=== PATIENT | female | born 1965 | race Caucasian/White ===

== ENCOUNTER 2018-02-26 17:23 | Inpatient (IN) | payer MEDICAID ==
[~2018-02-26] VITALS: Ht 167.6 cm; Wt 80.3 kg
--- NOTE | 2018-02-26 17:25 | NUR ---
RT NOTE: PT. 52 Y OLD FEMALE REC. IN ER TRACHED SHILEY ALERT AND RESPONSIVE, BILATERALLY RALES NOTED AND SUX'D FOR MOD. AMT SECRETIONS. EQUAL CHEST RISE NOTED. PLACED ON COOL AEROSOL 40 % 10 L/MIN VIA T-PIECE CONTINUE FOR MONITOR, SPO2 98% HR 88.
--- NOTE | 2018-02-26 17:35 | NUR ---
YUMI FROM [facility] D/T WANTS PT TO BE "CHECKED OUT", NOTED DIAPHORETIC. A/OX 1, BREATHING EVEN AND UNLABORED VIA TRACH ON COOL AEROSOL. PATIENT IS BEDBOUND, NONVERBAL AT BASELINE. NAD, VITALS STABLE. SAFETY AND COMFORT MEASURES IN PLACE. AWAITING MD ORDERS.
--- NOTE | 2018-02-26 17:45 | NUR ---
NEW IV STARTED ON LFA, 20G. UNABLE TO DRAW BLOOD, LAB INFORMED TO DRAW BLOOD.
--- NOTE | 2018-02-26 17:58 | NUR ---
URINE OBTAINED VIA STRAIGHT CATH AND SENT TO LAB PER MD ORDERS.
[2018-02-26] MEDS ORDERED: IV NS 0.9% 1,000 ML BAG IV ONE (18:00)
--- NOTE | 2018-02-26 18:00 | NUR ---
AT BEDSIDE AT THIS TIME, STATING PATIENT IS MORE ALTERED THAN USUAL TO SCHOOL COORDINATOR, JUAN BEAULIEU. PER JUAN, ACTIVATE CODE STROKE.
--- NOTE | 2018-02-26 18:01 | NUR ---
CODE STROKE CALLED.
--- NOTE | 2018-02-26 18:05 | NUR ---
PT WENT TO CT.
[2018-02-26 18:06] LABS: APPEARANCE,URINE Clear (CLEAR); BILIRUBIN,URINE Negative (NEGATIVE); BLOOD, URINE Negative Ery/uL (NEGATIVE); COLOR,URINE Yellow (YELLOW); KETONES,URINE Negative (NEGATIVE); LEUKOCYTE ESTERASE ,URINE Trace (NEGATIVE); NITRITE, URINE Positive (NEGATIVE); PH,URINE 7.5 (5.0-8.0); PROTEIN,URINE Trace mg/dl (NEGATIVE); UGLUCOSE Negative (NEGATIVE); UROBILINOGEN,URINE 0.2 EU/dL (0.2)
[2018-02-26 18:09] LABS: BASOPHILS # (AUTO) 0.2 /CMM (0.0-0.2); BASOPHILS % (AUTO) 1.8 % (0.0-2.0); EOSINOPHILS % (AUTO) 7.7 % (0.0-6.0); HEMATOCRIT 40 % (33-45); HEMOGLOBIN 13.6 g/dL (11.5-14.8); LYMPHOCYTES # (AUTO) 1.8 /CMM (0.8-4.8); LYMPHOCYTES % (AUTO) 20.4 % (20.0-44.0); MEAN CORPUSCULAR HGB CONC 34 g/dl (31.0-36.0); MEAN CORPUSCULAR VOLUME 86 fL (82-100); MONOCYTES # (AUTO) 0.3 /CMM (0.1-1.30); MONOCYTES % (AUTO) 3.9 % (2.0-12.0); NEUTROPHILS # (AUTO) 5.6 /CMM (1.8-8.9); NEUTROPHILS % (AUTO) 66.2 % (43.0-81.0); PLATELET COUNT (AUTO) 442 /CMM (150-450); RDW COEFFICIENT OF VARIATION 15.1 (11.5-15.0); RED BLOOD CELL COUNT(AUTO) 4.67 MIL/uL (4.0-5.2); WHITE BLOOD COUNT (AUTO) 8.6 K/uL (4.3-11.0)
[2018-02-26] MEDS ORDERED: IV NS 0.9% 500 ML IV ONE (18:10)
[2018-02-26] MEDS ORDERED: IOHEXOL-350 100 ML VIAL IV ONE (18:10)
--- NOTE | 2018-02-26 18:15 | NUR ---
NEW IV STARTED ON LAC, 20G. IV ON LFA, INFILTRATED IN CT.
[2018-02-26 18:28] LABS: INR 0.95 (0.85-1.15)
[2018-02-26] MEDS ORDERED: PIPERACILLIN /TAZOBACTAM 3.375 G in IV D5W 50 ML IV ONE (18:30)
--- NOTE | 2018-02-26 18:30 | NUR ---
PT BACK FROM CT
[2018-02-26 18:32] LABS: ALANINE AMINOTRANSFERASE 42 U/L (12-78); ALBUMIN 2.9 g/dL (3.4-5.0); ALKALINE PHOSPHATASE 82 U/L (46-116); ASPARTATE AMINOTRANSFERASE 23 U/L (15-37); BILIRUBIN,DIRECT 0.1 mg/dL (0.0-0.2); BILIRUBIN,TOTAL 0.2 mg/dL (0.2-1.0); CALCIUM, SERUM 9.3 mg/dL (8.5-10.1); CARBON DIOXIDE 29 mmol/L (21-32); CHLORIDE 100 mmol/L (98-107); CREATININE 0.5 mg/dL (0.6-1.3); GLUCOSE 99 mg/dL (74-106); SODIUM SERUM 137 mmol/L (136-145); TOTAL PROTEIN, SERUM 7.6 g/dL (6.4-8.2); UREA NITROGEN, BLOOD 17 mg/dL (7-18)
[2018-02-26 18:51] LABS: BACTERIA,URINE Many /HPF (None Seen); RBC,URINE 0-2 /HPF (0-2); SQUAMOUS EPITHELIAL CELL,UR Few /HPF (None Seen)
[2018-02-26] MEDS ORDERED: hydrALAZINE HCL IV 20 MG VIAL ONE (18:59)
[2018-02-26] MEDS ORDERED: IPRATROPIUM NEB FS 0.5 MG/2.5 ML AMPUL.NEB NEB ONE (19:00)
[2018-02-26] MEDS ORDERED: hydrALAZINE HCL IV 20 MG VIAL IV ONE (19:00)
[2018-02-26] MEDS ORDERED: ALBUTEROL FS 2.5 MG/0.5 ML VIAL.NEB NEB ONE (19:00)
[2018-02-26] MEDS ORDERED: LEVOFLOXACIN 750 MG /D5W 150ML PIGGYBACK IV ONE (19:00)
[2018-02-26] MEDS ORDERED: IPRATROPIUM NEB FS 0.5 MG/2.5 ML AMPUL.NEB ONE (19:03)
[2018-02-26] MEDS ORDERED: ALBUTEROL FS 2.5 MG/0.5 ML VIAL.NEB ONE (19:03)
--- NOTE | 2018-02-26 19:03 | NUR ---
PATIENT'S BP ELEVATED, TECHNICAL TRAINING COORDINATOR, SCOTTIEI INFORMED. ORDERED HYDRALAZINE, PATIENT MEDICATED PER MD ORDERS.
--- NOTE | 2018-02-26 19:05 | NUR ---
CALLED NURSING SQUADRON WORKER AND REQUESTED A TELE BED FOR THIS PT.
[2018-02-26] MEDS ORDERED: BLOO-668 IN (19:10)
--- NOTE | 2018-02-26 19:15 | NUR ---
REPORT GIVEN TO ZAHIDA FOR SAHARA.
[2018-02-26 19:19] LABS: CHOLESTEROL 168 mg/dL (<200); HDL CHOLESTEROL 53 mg/dL (40-60); LDL 108 mg/dL (0-99); TRIGLYCERIDES 313 mg/dL (30-150)
[2018-02-26] MEDS ORDERED: ACET-868 GT (19:20)
[2018-02-26] MEDS ORDERED: MAGN400O6 GT (19:20)
[2018-02-26] MEDS ORDERED: DOCU100C36 GT (19:20)
[2018-02-26] MEDS ORDERED: AMLO5TAB7 GT (19:20)
[2018-02-26] MEDS ORDERED: LACT-96 GT (19:20)
[2018-02-26] MEDS ORDERED: FERR300L GT (19:20)
[2018-02-26] MEDS ORDERED: METO50TA16 GT (19:20)
--- NOTE | 2018-02-26 19:30 | NUR ---
PT'S RT HAND IV IS INFILTRATED. IV REMOVED. PT STILL HAS IV ON LAC.
[2018-02-26 19:34] LABS: TROPONIN I < 0.002 ng/mL (0.00-0.056)
[2018-02-26] MEDS ORDERED: LEVOFLOXACIN 750 MG /D5W 150ML 150 ML IV ONE (20:00)
--- NOTE | 2018-02-26 20:07 | NUR ---
FREEDOM SPLINT APPLIED. IS AWARE. STEVEN CABALLERO IS STARTING LEVAQUIN AT THIS TIME.
[2018-02-26] MEDS ORDERED: HYDROCODONE/APAP 5/325MG 1 EACH TABLET PO PRN (20:30)
[2018-02-26] MEDS ORDERED: MAG HYDROX/AL HYDROX/SIMETH 30 ML UDC PO PRN (20:30)
[2018-02-26] MEDS ORDERED: Z GUARD REMEDY 2 OZ OINT TP PRN (20:30)
[2018-02-26] MEDS ORDERED: MAGNESIUM HYDROXIDE 30 ML UDC PO PRN (20:30)
[2018-02-26] MEDS ORDERED: ACETAMINOPHEN 325 MG TABLET PO PRN ×2 (20:30)
[2018-02-26] MEDS ORDERED: hydrALAZINE HCL 25 MG TABLET PO PRN (20:30)
[2018-02-26] MEDS ORDERED: ZOLPIDEM TARTRATE 5 MG TABLET PO PRN (20:30)
[2018-02-26] MEDS ORDERED: ONDANSETRON HCL/PF 4 MG/2 ML VIAL IVP PRN (20:30)
[2018-02-26] MEDS ORDERED: ENALAPRILAT INJ (1.25 MG/ML) 1.25 MG/ML VIAL IV PRN (20:30)
--- NOTE | 2018-02-26 20:40 | NUR ---
PT IS ASSIGNED TO [facility] #[id number]:, PT IS DIAGNOSED WITH TIA, PNEUMONIA, AND UTI, AND DR HANSEN IS THE ACCEPTING MD
--- NOTE | 2018-02-26 20:50 | NUR ---
MANGLE CATCHERELECTRIC REPAIR SUPERVISOR NOTES ADMITTED 52 YO FEMALE PT ALERT, AWAKE, NONVERBAL WITH TRACHEOSTOMY PATENT, ON COOL AEROSOL FIO2 35%, O2 SAT 98%. RESPIRATIONS EVEN, UNLABORED, NO APPARENT DISTRESS NOTED. SR 80.GT IN PLACE 1ML RESIDUAL NOTED. NO S/SX OF PAIN OR DISCOMFORT NOTED AT THIS TIME. IV SITE LAC INTACT, PATENT.BODY ASSESSMENT DONE SKIN INTACT. FAMILY AT BEDSIDE. ATTENDED ALL NEEDS. WILL CONTINUE TO MONITOR ACCORDINGLY.
[2018-02-26 21:00] VITALS: BP 132/85
[2018-02-26] MEDS ORDERED: VANCOMYCIN 1 GM in IV D5W 250 ML IV SCH (21:00)
[2018-02-26] MEDS ORDERED: DEXTROSE 50%-WATER 50 ML DISP.SYRIN IV PRN (21:30)
[2018-02-26] MEDS ORDERED: BLOOD SUGAR DIAGNOSTIC 1 EACH STRIP IN SCH (22:00)
[2018-02-26] MEDS ORDERED: VANCOMYCIN 1.25 GM in IV NS 0.9% 250 ML IV ONE (22:00)
--- NOTE | 2018-02-26 22:00 | NUR ---
SURVEILLANCE INSPECTOR NOTE INSERTED F/C ORDERED. PT TOLERATED PROCEDURE WELL , NO S/SX OF PAIN OR DISCOMFORT NOTED..F/C DRAINING YELLOW COLOR URINE. WILL CONTINUE TO MONITOR ACCORDINGLY.
--- NOTE | 2018-02-26 22:13 | NUR ---
PRELIMINARY CAROTID DUPLEX IMAGING SHOWED SEVERE CLOT IN LEFT BULB AREA. ADVISED ATTENDING NURSE (JOSELYN) OF INITIAL RESULTS.
--- NOTE | 2018-02-26 22:26 | NUR ---
PT PLACED ON COOL AEROSOL AT THIS TIME. FI02 AT 35% @ 8L. SP02 IS 100% HR 82. SUCTIONED SMALL AMOUNT OF THIN YELLOW RED TINGED SECRETIONS. WILL CONT TO MONITOR PT.
[2018-02-26] MEDS: IV NS 0.9% 1,000 ML IV PRN (22:38)
[2018-02-26] MEDS: ATORVASTATIN 40 MG TABLET PO SCH (22:47)
[2018-02-26] MEDS: BLOOD SUGAR DIAGNOSTIC 1 EACH STRIP IN SCH (23:14)
[2018-02-27] VITALS: BP_SYST 150; BP_SYST 158; BP_DIAS 78; BP_DIAS 92
[2018-02-27] MEDS ORDERED: BLOOD SUGAR DIAGNOSTIC 1 EACH STRIP IN SCH
--- NOTE | 2018-02-27 | NUR ---
BLOOD GLUCOSE CHECKED 124, NO COVERAGE NEEDED AT THIS TIME. WILL CONTINUE TO MONITOR.
[2018-02-27] MEDS: FIBERSOURCE HN 1,000 ML BOTTLE GT PRN (01:38)
[2018-02-27 04:00] VITALS: BP_SYST 144; BP_DIAS 80; BP_DIAS 90
[2018-02-27] MEDS: BLOOD SUGAR DIAGNOSTIC 1 EACH STRIP IN SCH ×4 (05:12→23:18)
[2018-02-27] MEDS: PIPERACILLIN /TAZOBACTAM 3.375 G in IV D5W 100 ML IV SCH ×6 (05:12→23:18)
[2018-02-27] MEDS: INSULIN REGULAR, HUMAN 100 UNIT/ML 3 ML VIAL SQ PRN ×4 (05:38→23:32)
--- NOTE | 2018-02-27 06:46 | NUR ---
OPEN HEARTH WORKER CLOSING NOTES PT IN BED RESTING COMFORTABLY, TRACH PATENT, NO RESPIRATORY DISTRESS NOTED. GT IN PLACE 1ML RESIDUAL NOTED, TOLERATES GT FEEDING WELL. NO S/SX OF PAIN OR DISCOMFORT NOTED. SR 84. IV SITE LAC INTACT, PATENT. F/C IN PLACE DRAINING YELLOW COLOR URINE. TRACH CARE DONE. KEPT CLEAN AND COMFORTABLE, ATTENDED ALL NEEDS. WILL CONTINUE TO MONITOR ACCORDINGLY
[2018-02-27 07:08] LABS: BASOPHILS % (AUTO) 0.2 % (0.0-2.0); EOSINOPHILS % (AUTO) 6.2 % (0.0-6.0); HEMATOCRIT 39 % (33-45); HEMOGLOBIN 12.9 g/dL (11.5-14.8); LYMPHOCYTES # (AUTO) 0.7 /CMM (0.8-4.8); LYMPHOCYTES % (AUTO) 7.3 % (20.0-44.0); MEAN CORPUSCULAR HGB CONC 33 g/dl (31.0-36.0); MEAN CORPUSCULAR VOLUME 87 fL (82-100); MONOCYTES # (AUTO) 0.2 /CMM (0.1-1.30); MONOCYTES % (AUTO) 1.7 % (2.0-12.0); NEUTROPHILS # (AUTO) 8.7 /CMM (1.8-8.9); NEUTROPHILS % (AUTO) 84.6 % (43.0-81.0); PLATELET COUNT (AUTO) 389 /CMM (150-450); RED BLOOD CELL COUNT(AUTO) 4.46 MIL/uL (4.0-5.2); WHITE BLOOD COUNT (AUTO) 10.3 K/uL (4.3-11.0)
[2018-02-27 07:12] LABS: INR 1.01 (0.87-1.13)
[2018-02-27 07:19] LABS: CALCIUM, SERUM 8.8 mg/dL (8.5-10.1); CREATININE 0.6 mg/dL (0.6-1.3); MAGNESIUM 1.8 mg/dL (1.8-2.4); POTASSIUM 3.9 mmol/L (3.5-5.1)
[2018-02-27 07:20] LABS: THYROID STIMULATING HORMONE 2.273 uIU/mL (0.358-3.74)
[2018-02-27 08:00] VITALS: BP 140/63
[2018-02-27] MEDS ORDERED: FEE PK DOSING 1 MIN EA MC ONE (08:20)
[2018-02-27] MEDS: ASPIRIN 81 MG TAB.CHEW PO SCH (08:38)
[2018-02-27] MEDS: METOPROLOL TARTRATE 50 MG TABLET GT SCH ×2 (08:42→16:58)
--- NOTE | 2018-02-27 08:44 | NUR ---
MS RN NOTES AWAKE, A/O X2, ABLE TO MOUTH WORDS. DENIES PAIN, TRACH INTACT, ON COOL AEROSOL, OXYGEN AT 8L FiO2 35%. PRESENCE OF GT, GASTRIC RESIDUAL 5ML, FEEDING FIBERSOURCE AT 55ML/HR. WILL CLARIFY ORDERS FOR CLEAR LIQUIDS DIET. SCD IN PLACE, ASPIRATION, SAFETY PRECAUTION MAINTAINED, WILL CONT TO MONITOR.
[2018-02-27] MEDS: FERROUS SULFATE UDC 300 MG/5 ML UDC GT SCH (08:47)
[2018-02-27] MEDS ORDERED: AMLODIPINE BESYLATE 5 MG TABLET GT SCH (09:00)
--- NOTE | 2018-02-27 11:19 | NUR ---
Social service consult requested by Dr. barnes for CVA. Pt. is a 52 year old female who was admitted to [facility] for altered mental status. Pt. is awake and alert, non-verbal with tracheostomy on cool aerosol. Pt. resides at [facility] located at [phone]. Pt. to be discharged back to [facility] once medically cleared. Pt. is dependent for her ADL's. Pt' s emergency contact /DPOA is her Gavino Burden . No other social service needs are requested at this time. SW is available, if needed.
[2018-02-27] MEDS: VANCOMYCIN 1 GM in IV D5W 250 ML IV SCH ×2 (11:29→21:09)
[2018-02-27 15:46] VITALS: BP 120/86
[2018-02-27] MEDS: METOPROLOL TARTRATE 25 MG TABLET GT SCH (17:44)
--- NOTE | 2018-02-27 18:32 | NUR ---
MS RN CLOSING NOTES A/O X2, ABLE TO MOUTH WORDS. TRACH INTACT, ON COOL AEROSOL OXYGEN 35% 8L, TOLERATING WELL, NO SOB. SUCTION TRACH PRN, TOLERATING GTUBE FEEDING, MAINTAIN HOB ELEVATED. POPE CATH IN PLACE, TUBING BELOW BLADDER, BAG OFF THE FLOOR. BLOOD SUGAR MONITORED WITH ISS PARAMETERS GIVEN. TURNED AND REPOSITION IN BED Q 2HR. SAFETY PRECAUTION MAINTAINED. WILL ENDORSE TO ONCOMING RN.
--- NOTE | 2018-02-27 19:00 | NUR ---
RN OPENING NOTES PT AWAKE AND RESTING IN BED. PT ALERT AND ORIENTED X1. SON AT BEDSIDE. NO APPARENT S/S OF PAIN, DISTRESS OR SOB AT THIS TIME. PT HAS A TRACH TO COOL AEROSOL 8L, FIO2 35%. PT HAS A LEFT AC IV #20 RUNNING NS AT 75ML/HR. PT ALSO HAS FIBERSOURCE AT 55ML FOR 20HRS. SAFETY PRECAUTIONS IN PLACE, BED IN LOW, LOCKED POSITION, X2 SIDE RAILS UP, CALL LIGHT WITHIN REACH. WILL CONTINUE TO MONITOR.
[2018-02-27 20:00] VITALS: BP 132/74
[2018-02-27] MEDS: ATORVASTATIN 40 MG TABLET PO SCH (21:08)
[2018-02-27] MEDS: IV NS 0.9% 1,000 ML IV PRN (23:19)
[2018-02-28] MEDS: FIBERSOURCE HN 1,000 ML BOTTLE GT PRN (02:13)
[2018-02-28] MEDS: PIPERACILLIN /TAZOBACTAM 3.375 G in IV D5W 100 ML IV SCH ×4 (05:25→23:21)
[2018-02-28] MEDS: BLOOD SUGAR DIAGNOSTIC 1 EACH STRIP IN SCH ×4 (05:25→23:21)
[2018-02-28] MEDS: INSULIN REGULAR, HUMAN 100 UNIT/ML 3 ML VIAL SQ PRN ×2 (05:47→23:33)
--- NOTE | 2018-02-28 06:30 | NUR ---
RN CLOSING NOTES PT RESTING IN BED. DAUGHTER AT BEDSIDE. NO APPARENT S/S OF PAIN, DISTRESS OR SOB OVERNIGHT. PT HAS A TRACH TO COOL AEROSOL 8L, FIO2 35%. PT HAS A LEFT AC IV #20 RUNNING NS AT 75ML/HR. PT ALSO HAS FIBERSOURCE AT 55ML FOR 20HRS. SAFETY PRECAUTIONS IN PLACE, BED IN LOW, LOCKED POSITION, X2 SIDE RAILS UP, CALL LIGHT WITHIN REACH. WILL ENDORSE TO DAY SHIFT NURSE FOR CONTINUITY OF CARE.
[2018-02-28 06:53] LABS: CALCIUM, SERUM 8.6 mg/dL (8.5-10.1); CREATININE 0.6 mg/dL (0.6-1.3); POTASSIUM 4.3 mmol/L (3.5-5.1)
--- NOTE | 2018-02-28 07:30 | NUR ---
RN MS NOTES PT IN BED, AWAKE, ALERT TO SELF, NO COMPLAINT OF PAIN, RESPIRATIONS NORMAL, ON TRACH WITH COOL AEROSOL, IV FLUIDS INFUSING WELL, KEPT WARM AND COMFORTABLE, GT FEEDING INFUSING WELL, TURNED AND REPOSITIONED FOR COMFORT.
[2018-02-28 07:57] VITALS: BP 127/69
[2018-02-28] MEDS: FERROUS SULFATE UDC 300 MG/5 ML UDC GT SCH (08:20)
[2018-02-28] MEDS: METOPROLOL TARTRATE 25 MG TABLET GT SCH ×2 (08:21→17:37)
[2018-02-28] MEDS: ASPIRIN 81 MG TAB.CHEW PO SCH (08:21)
[2018-02-28] MEDS: VANCOMYCIN 1 GM in IV D5W 250 ML IV SCH ×2 (10:37→21:18)
--- NOTE | 2018-02-28 11:23 | NUR ---
WOUND CARE CONSULT: PT PRESENTS WITH SLIGHT FINE RASH TO RT ANTERIOR THIGH, PRESENT ON ADMISSION PER NURSING DOCUMENTATION. DEFER TO MD FOR RASH. PT IS VENT-DEPENDENT AND INCONTINENT OF STOOL. POPE PRESENT. ALL SKIN PROTECTION MEASURES IN PLACE AND DISCUSSED WITH NURSING STAFF. CURRENT GGAE SCORE IS 14. WILL SEE PRN. MD IN AGREEMENT WITH PLAN OF CARE.
--- NOTE | 2018-02-28 11:59 | NUR ---
RN MS NOTES PT IN BED, AWAKE, DENIES PAIN, NO SOB, TRACH CARE PROVIDED, IV FLUIDS INFUSING WELL, BS CHECKED, NO S/S OF HYPO/HYPERGLYCEMIA NOTED, TURNED AND REPOSITIONED, F/C DRAINING WELL, KEPT WARM AND COMFORTABLE.
[2018-02-28] MEDS ORDERED: CEPH-570 PO (12:22)
[2018-02-28 16:00] VITALS: BP 160/85
[2018-02-28] MEDS: LACTOBACILLUS RHAMNOSUS GG 1 EACH CAP.SPRINK GT SCH (17:36)
--- NOTE | 2018-02-28 18:57 | NUR ---
RN MS NOTES PT IN BED, AWAKE, NOT IN DISTRESS, DENIES PAIN, FAMILY AT BEDSIDE, GT FEEDING INFUSING WELL, F/C DRAINING WELL WITH CLEAR, YELLOW URINE, PT SCHEDULED FOR D/C BACK TO [facility] BUT WAS HELD, FACILITY UNABLE TO ACCEPT PT BACK TODAY BECAUSE THEY ARE STILL AWAITING FOR CULTURE RESULTS, DR. URENA AND FAMILY INFORMED, PM MEDS GIVEN ORDERED, TURNED AND REPOSITIONED Q2 HOURS, KEPT PT CLEAN AND DRY, ALL NEEDS ATTENDED.
--- NOTE | 2018-02-28 19:15 | NUR ---
RN OPENING NOTES PT AWAKE AND WORKING WITH PHYSICAL THERAPY. NO COMPLAINTS OF PAIN, SOB, OR DISTRESS AT THIS TIME. PT HAS A LEFT AC #20 IV INTACT AND RUNNING 75ML/HR PT HAS A OPPE CATHETER INTACT AND DRAINING WELL. TRACH WITH COOL AEROSOL 5L O2 28% FIO2. SAFETY PRECAUTIONS IN PLACE, BED IN LOW, LOCKED POSITION, X2 SIDE RAILS UP, AND CALL LIGHT WITHIN REACH. WILL CONTINUE TO MONITOR.
[2018-02-28 20:00] VITALS: BP 147/90
[2018-02-28] MEDS: ATORVASTATIN 40 MG TABLET PO SCH (21:18)
[2018-03-01] MEDS: FIBERSOURCE HN 1,000 ML BOTTLE GT PRN (02:51)
[2018-03-01] MEDS: PIPERACILLIN /TAZOBACTAM 3.375 G in IV D5W 100 ML IV SCH ×2 (05:13→12:17)
[2018-03-01] MEDS: BLOOD SUGAR DIAGNOSTIC 1 EACH STRIP IN SCH ×2 (05:14→12:18)
--- NOTE | 2018-03-01 06:19 | NUR ---
RN NOTES PT BLOOD SUGAR 137. PT REFUSED INSULIN.
[2018-03-01 06:41] LABS: CALCIUM, SERUM 8.3 mg/dL (8.5-10.1); CREATININE 0.6 mg/dL (0.6-1.3); POTASSIUM 3.7 mmol/L (3.5-5.1)
--- NOTE | 2018-03-01 06:45 | NUR ---
RN CLOSING NOTES PT AWAKE AND RESTING IN BED. NO COMPLAINTS OF PAIN, SOB, OR DISTRESS OVERNIGHT. PT HAS A LEFT AC #20 IV INTACT AND RUNNING 75ML/HR PT HAS A POPE CATHETER INTACT OUTPUT OF 1200 OVERNIGHT. TRACH WITH COOL AEROSOL 5L O2 28% FIO2. PT HAS G TUBE FEEDING AT 55ML/HR X20 HOURS. SAFETY PRECAUTIONS IN PLACE, BED IN LOW, LOCKED POSITION, X2 SIDE RAILS UP, AND CALL LIGHT WITHIN REACH. WILL ENDORSE TO DAY SHIFT NURSE FOR CONTINUITY OF CARE.
--- NOTE | 2018-03-01 07:50 | NUR ---
RN OPENING NOTES RECEIVED PT. PT IS STABLE AND RESTING IN BED. A/OX3, PT IS TRACHED, CURRENTLY ON COOL AEROSOL WITH 5L O2. NO S/S OF RESP DISTRESS OR SOB. PT DENIES PAIN. IV ACCESS LOCATED ON LEFT AC 20G, INFUSING NS AT 75 ML/HR. AWAITING BLOOD CX IN ORDER TO DC TO [facility]. SAFETY MEASURES IN PLACE, CALL LIGHT WITHIN REACH. WILL CONTINUE TO MONITOR.
[2018-03-01 08:33] VITALS: BP 144/83
[2018-03-01] MEDS: ASPIRIN 81 MG TAB.CHEW PO SCH (08:38)
[2018-03-01] MEDS: FERROUS SULFATE UDC 300 MG/5 ML UDC GT SCH (08:38)
[2018-03-01] MEDS: METOPROLOL TARTRATE 25 MG TABLET GT SCH ×2 (08:39→16:35)
[2018-03-01] MEDS: LACTOBACILLUS RHAMNOSUS GG 1 EACH CAP.SPRINK GT SCH ×2 (08:39→16:34)
[2018-03-01] MEDS: VANCOMYCIN 1 GM in IV D5W 250 ML IV SCH (09:17)
[2018-03-01 16:11] VITALS: BP 149/77
[2018-03-01 16:35] VITALS: BP 149/77
--- NOTE | 2018-03-01 19:10 | NUR ---
DISCHARGE NOTE PT D/C TO [facility]. VSS, NO S/S OF SOB, NO C/O PAIN. DISCHARGE TEACHING PERFORMED, PT SIGNALS UNDERSTANDING BY NODDING HEAD. PT UNABEL TO SIGN DC PAPERWORK, COSIGNER SIGNED. IV ACCESS, POPE AND ID BAND REMOVED. REPORT CALLED AND GIVEN TO REINA THURMAN [facility]. BELONGINGS SHEET COSIGNED BY ADDITIONAL NURSE. PT REFUSES PICTURE OF HIP WOUND. PT LEFT HOSPITAL WITH MEDICAL TRANSPORT IN AMBULANCE.
== END 2018-03-01 18:19 | DRG 463 ==
LOC: ER 17:25 → TELE 20:42 → MED 02-27 08:55
PROVIDERS: ADMIT Internal Medicine; ATTEND Internal Medicine
DX: N39.0 Urinary tract infection, site not specified (principal); G92 Toxic encephalopathy; J96.10 Chronic respiratory failure, unspecified whether with hypoxia or hypercapnia; Z93.0 Tracheostomy status; R53.2 Functional quadriplegia; E11.9 Type 2 diabetes mellitus without complications; I10 Essential (primary) hypertension; B96.1 Klebsiella pneumoniae [K. pneumoniae] as the cause of diseases classified elsewhere; R13.10 Dysphagia, unspecified; Z93.1 Gastrostomy status; E78.5 Hyperlipidemia, unspecified; J98.11 Atelectasis; K21.9 Gastro-esophageal reflux disease without esophagitis; Z86.73 Personal history of transient ischemic attack (TIA), and cerebral infarction without residual deficits; R53.1 Weakness
CPT/HCPCS: 31720; 36415; 70450-TC; 70496-TC; 70498-TC; 71045-TC; 80048-TC; 80061-TC; 80076-TC; 80202-TC; 81000-TC; 82746; 82962-TC; 83540-TC; 83605-TC; 83735-TC; 84100-TC; 84443-TC; 84484-TC; 85025-TC; 85730-TC; 87040-TC; 87081-TC; 87086-TC; 87186-TC; 92611-TC; 93307-TC; 93880-TC; 94640-TC; 94664-TC; 94760-TC; 97110-TC; 97112-TC; 97530-TC; A4606; A4623; J0360; J1815; J1956; J2543; J3370; J7030; J7040; J7050; J7060; Q9967; Z7610

== ENCOUNTER 2018-03-21 12:11 | Emergency (ER) | payer MEDICAID ==
[~2018-03-21] VITALS: Ht 175.3 cm; Wt 80.3 kg
[~2018-03-21 12:11] MED LIST: ACET-868 GT; AMLO5TAB7 GT; BLOO-668 IN; CEPH-570 PO; DOCU100C36 GT; FERR300L GT; LACT-96 GT; MAGN400O6 GT; METO50TA16 GT
--- NOTE | 2018-03-21 12:38 | NUR ---
VERBAL ORDER DR CONCEPCION IN AND OUT CATH URINE SAMPLE COLLECTED SENT TO LAB
[2018-03-21 12:47] LABS: APPEARANCE,URINE SL CLOUDY (CLEAR); BILIRUBIN,URINE NEGATIVE (NEGATIVE); BLOOD, URINE NEGATIVE Ery/uL (NEGATIVE); COLOR,URINE YELLOW (YELLOW); KETONES,URINE NEGATIVE (NEGATIVE); LEUKOCYTE ESTERASE ,URINE NEGATIVE (NEGATIVE); NITRITE, URINE NEGATIVE (NEGATIVE); PROTEIN,URINE NEGATIVE (NEGATIVE); UGLUCOSE NEGATIVE (NEGATIVE); UROBILINOGEN,URINE 0.2 EU/dL (0.2)
[2018-03-21 12:48] LABS: BASOPHILS # (AUTO) 0.1 /CMM (0.0-0.2); BASOPHILS % (AUTO) 0.7 % (0.0-2.0); EOSINOPHILS % (AUTO) 7.5 % (0.0-6.0); HEMATOCRIT 40 % (33-45); HEMOGLOBIN 13.3 g/dL (11.5-14.8); LYMPHOCYTES % (AUTO) 21.2 % (20.0-44.0); MEAN CORPUSCULAR HGB CONC 34 g/dl (31.0-36.0); MEAN CORPUSCULAR VOLUME 87 fL (82-100); MONOCYTES # (AUTO) 0.5 /CMM (0.1-1.30); MONOCYTES % (AUTO) 5.7 % (2.0-12.0); NEUTROPHILS # (AUTO) 6.2 /CMM (1.8-8.9); NEUTROPHILS % (AUTO) 64.9 % (43.0-81.0); PLATELET COUNT (AUTO) 392 /CMM (150-450); RED BLOOD CELL COUNT(AUTO) 4.59 MIL/uL (4.0-5.2); WHITE BLOOD COUNT (AUTO) 9.5 K/uL (4.3-11.0)
[2018-03-21 12:55] LABS: CALCIUM, SERUM 9.8 mg/dL (8.5-10.1); CARBON DIOXIDE 26 mmol/L (21-32); CHLORIDE 100 mmol/L (98-107); CREATININE 0.6 mg/dL (0.6-1.3); GLUCOSE 120 mg/dL (74-106); POTASSIUM 4.3 mmol/L (3.5-5.1); SODIUM SERUM 135 mmol/L (136-145); UREA NITROGEN, BLOOD 20 mg/dL (7-18)
[2018-03-21 13:01] LABS: ALANINE AMINOTRANSFERASE 88 U/L (12-78); ALBUMIN 3.3 g/dL (3.4-5.0); ALKALINE PHOSPHATASE 90 U/L (46-116); ASPARTATE AMINOTRANSFERASE 40 U/L (15-37); BILIRUBIN,DIRECT 0.1 mg/dL (0.0-0.2); BILIRUBIN,TOTAL 0.2 mg/dL (0.2-1.0); TOTAL PROTEIN, SERUM 7.7 g/dL (6.4-8.2)
--- NOTE | 2018-03-21 13:01 | NUR ---
PT TAKEN TO CT
[2018-03-21 13:03] LABS: TROPONIN I < 0.017 ng/mL (0.00-0.056)
[2018-03-21] MEDS ORDERED: BISA10SU61 RC (13:29)
[2018-03-21] MEDS ORDERED: MULT-213 GT (13:29)
[2018-03-21] MEDS ORDERED: IBUP-1953 GT (13:29)
[2018-03-21] MEDS ORDERED: HYDR25TA4 GT (13:29)
[2018-03-21] MEDS ORDERED: IPRA0.2S9 IH (13:29)
[2018-03-21] MEDS ORDERED: ASCO500T9 GT (13:29)
[2018-03-21] MEDS ORDERED: CRAN3875 GT (13:29)
[2018-03-21] MEDS ORDERED: ACET325T53 GT (13:29)
[2018-03-21] MEDS ORDERED: CLON0.1T GT (13:29)
[2018-03-21] MEDS ORDERED: AMIN887L GT (13:29)
[2018-03-21] MEDS ORDERED: HYDR100T27 GT (13:29)
[2018-03-21] MEDS ORDERED: TRIA80CR12 TP (13:29)
[2018-03-21] MEDS ORDERED: NA P133E RC (13:29)
[2018-03-21 13:40] LABS: INR 0.95 (0.87-1.13)
--- NOTE | 2018-03-21 13:41 | NUR ---
REQUESTED BLS TRANSPORTATION GOING BACK TO [facility] VIA [facility]
--- NOTE | 2018-03-21 14:24 | NUR ---
IV removed. Catheter intact and site benign. Pressure and 4x4 applied to site. No bleeding noted.
--- NOTE | 2018-03-21 14:24 | NUR ---
Patient discharged to home in stable condition. Written and verbal after care instructions given. Patient verbalizes understanding of instruction.
[2018-03-21 14:25] VITALS: BP 142/97
== END 2018-03-21 14:26 | disposition home or self-care (01) ==
LOC: ER 12:14
DX: R41.82 Altered mental status, unspecified (principal); E11.9 Type 2 diabetes mellitus without complications; Z86.73 Personal history of transient ischemic attack (TIA), and cerebral infarction without residual deficits
CPT/HCPCS: 36415; 70450-TC; 71045-TC; 80048-TC; 80076-TC; 80305; 81000-TC; 82962-TC; 84484-TC; 85025-TC; 85730-TC; 87081-TC; A4606; Z7610